=== PATIENT | male | born 1995 | race Caucasian/White ===

== ENCOUNTER 2020-04-15 13:41 | Emergency (ER) | payer OTHER, SELFPAY ==
[2020-04-15 13:53] VITALS: BP 159/92; PULSE 92; RESP 18; O2SAT 100; BMI 28.3
--- NOTE | 2020-04-15 14:17 | CT_ITS ---
WS: [id number] CT ABDOMEN PELVIS TECHNIQUE: Contrast-enhanced CT of the abdomen and pelvis with coronal and sagittal reformatted image s. CLINICAL INFORMATION: abd pain/ umbilical hernia incarcerated COMPARISON: None. DLP: 1063.[address] scans at [facility] use at least one of these dose optimization techniques: automat ed exposure control; mA and/or kV adjustment per patient size (includes targeted exams where dose is matched to clinical indication); or iterative reconstruction. FINDINGS: Normal liver. Normal portal vein and splenic vein. Normal gallbladder. Normal spleen. Lung bases are well aerated. Small esophageal hiatal hernia. Adrenal glands are normal. Normal renal parenchymal enh ancement. No hydronephrosis. Normal caliber abdominal aorta. Sigmoid diverticulosis. No evidence of acute diverticulitis. No evidence of small or large bowel obst ruction. Tiny fat-containing umbilical hernia. No herniated bowel. Small amount of fluid along the um bilical hernia. CT/CT abdomen pelvis w con* [id number] IMPRESSION: 1. No acute abdominal or pelvic findings. 2. Small esophageal hiatal hernia. 3. Normal renal parenchymal enhancement. No hydronephrosis. 4. Normal caliber abdominal aorta. 5. Incidental fat-containing umbilical hernia. Tiny amount of incidental fluid along the umbilical hernia. No herniated bowel. 6. Sigmoid diverticulosis. No evidence of acute diverticulitis. Attempted notification Braxotn Carvajal DO at 04/15/2020 3:49 PM.
--- NOTE | 2020-04-15 14:18 | ED_ITS ---
HPI - Abdominal Pain General: Chief Complaint: Abdominal Pain Stated Complaint: stomach pain/ loo sent for ct Time Seen by Provider: 04/15/20 13:50 History of Present Illness: HPI narrative: 25-year-old male presents emergency room with some abdominal pain. 1 week ago he had a positive nasal swab antibody test. About 5 days prior to that he began to have symptoms he had headaches myalgias little bit of cough that is pretty much all resolved. Today he was seen at a local urgent care clinic and had severe umbilical pain with palpation of the umbilicus or with movement he has localized severe pain he is not noticed any significant bulge in the umbilicus. He is not had any dysuria urgency or frequency denies nausea vomiting or diarrhea has had about 5 stools today but they have all been formed. Denies any dysuria urgency or frequency or heme hem aturia denies any hematic hematochezia or hematemesis. He last ate this morning. MD elicited complaint: abdominal pain Pertinent past history: none Onset (ago): hour(s) Pain Consistency: intermittent Location: Periumbilical Severity: moderate Quality: cramping Radiation: none Migration to: no migration Exacerbating factors: nothing Relieving factors: nothing Associated Symptoms: Reports GI cramping; Denies anorexia, belching, bloating, change in bowel habits, change in stool character, chills, coffee ground emesis, constipation, diarrhea, dyspepsia, dysuria, excessive flatus, fever(s), heartburn, hematochezia, hematuria, hematemesis, fecal incontinence, loose stools, melena, nausea, poor appetite, syncope and vomiting Review of Systems Const: Denies: fever(s) or chills ENMT: Denies: throat pain, ear or mastoid pain, nasal discharge or nasal congestion Card: Denies: syncope Resp: Denies: dyspnea, productive cough or non-productive cough GI: Reports: GI cramping; Denies: nausea, vomiting, hematemesis, coffee ground emesis, heartburn, diarrhea, constipation, bloating, belching, excessive flatus, fecal incontinence, change in bowel habits, change in stool character, hematochezia or melena : Denies: dysuria or hematuria Skin/Breast: Denies: rash or pruritus Physical Exam Const: COMMON NORMALS: no acute distress GENERAL APPEARANCE: cooperative and comfortable ORIENTATION/CONSCIOUSNESS: Yes awake, Yes oriented to person, Yes oriented to place and Yes oriented to time HENMT: COMMON NORMALS: normocephalic, atraumatic and hearing grossly normal bilaterally HEAD & SCALP: normocephalic and atraumatic Eye: COMMON NORMALS: Equal, round and reactive pupils present, EOMs intact bilaterally, conjunctivae normal and no scleral icterus CONJUNCTIVA: Yes conjunctivae normal PUPIL: Yes Equal, round and reactive pupils present Neck/C-Spine: COMMON NORMALS: no JVD Resp: COMMON NORMALS: normal respiratory effort, No retractions, No use of accessory muscles and clear to auscultation bilaterally AUSCULTATION: clear to auscultation bilaterally Cardio: COMMON NORMALS: no JVD, regular rate, regular rhythm and No murmurs present (Cardio) RATE: regular rate RHYTHM: regular rhythm GI: COMMON NORMALS: Soft to palpation and No hepatosplenomegaly present AUSCULTATION: Yes normoactive bowel sounds PALPATION: Yes Soft to palpation, No Tenderness to palpation present (GI), No Guarding due to palpation present (GI) and Yes No hepatosplenomegaly present OTHER: Patient has severe pain but only with palpation directly into the umbilicus. He has a palpable small umbilical hernia with a small amount of what feels like soft tissue entrapped it was nonreducible. See below Extremity: COMMON NORMALS: normal to inspection, capillary refill normal, no clubbing, cyanosis or edema, no calf tenderness and no pedal edema Neuro: SENSORIUM/ORIENTATION: Yes oriented to person, Yes oriented to place and Yes oriented to time Skin: COMMON NORMALS: no rashes or lesions noted GENERAL SKIN EXAM: no rashes or lesions noted Course Vital Signs: Vital signs: Vital Signs Pulse Rate 70 04/15/20 16:35 Respiratory Rate 15 04/15/20 16:35 Blood Pressure 135/70 04/15/20 16:35 Pulse Oximetry 98 04/15/20 16:35 MDM - Abdominal Pain MDM Narrative: Medical decision making narrative: CT shows very small umbilical hernia with fat within the hernia. At this point he is asymptomatic unless is directly palpated. Given his COVID positive status and he could be better to discharge him home limit lifting to no more than [address]. [address] Nichole he agreed will have the patient follow-up in 2 weeks in the COVID is no longer an issue at that point he can look at having the hernia surgically corrected. Lab Data: Labs: Lab Results 04/15/20 04/15/20 04/15/20 Range/Units 14:29 14:29 14:47 WBC 8.4 (4.0-10.0) 10^3/ uL RBC 5.57 H (4.1-5.3) 10^6/u L Hgb 15.9 (11.7-16.6) g/dL Hct 49.1 (42.0-52.0) % MCV 88.2 (80-94) fL MCH 28.5 (28.0-34.0) pg MCHC 32.4 (30.0-36.0) g/dL RDW 12.3 (12.1-15.1) % Plt Count 206 (130-400) 10^3/c mm MPV 11.3 H (7.4-10.4) fL Neut % (Auto) 67.7 % Lymph % (Auto) 26.3 % [place] % (Auto) 5.3 % Eos % (Auto) 0.4 % Baso % (Auto) 0.1 % Neut # (Auto) 5.66 (1.8-7.7) 10^3/u L Lymph # (Auto) 2.2 (0.8-4.8) 10^3/u L [place] # (Auto) 0.4 (0.2-0.9) 10^3/u L Eos # (Auto) 0.0 (0.0-0.8) 10^3/u L Baso # (Auto) 0.0 (0.0-0.1) 10^3/u L Nucleated RBC % (a uto) 0 % Nucleated RBCs # 0.0 /100WBC Sodium 136 (136-145) mmol/L Potassium 4.1 (3.5-5.1) mmol/L Chloride 101 (98-107) mmol/L Carbon Dioxide 24 (22-29) mmol/L Anion Gap 15.1 (5-19) BUN 13 (6-20) mg/dL Creatinine 0.7 (0.7-1.2) mg/dL GFR Calculation 137.4 H (90-130) mL/min Glucose 115 (65-115) mg/dL Calculated Osmolal ity 279 L (285-295) mOsm/k g Calcium 9.2 (8.5-10.5) mg/dL Total Bilirubin 0.7 (0.15-1.2) mg/dL AST 18 (0-40) U/L ALT 37 (0-41) U/L Alkaline Phosphata se 42 (40-130) IU/L Total Protein 7.9 (6.6-8.7) g/dL Albumin 4.7 (3.5-5.2) g/dL Globulin 3.2 (1.3-4.6) g/dL Lipase 22 (13-60) U/L Urine Color Yellow (Yellow) Urine Appearance Clear (CLEAR) Urine pH 5 (5-7) Ur Specific Gravit y 1.020 (1.005-1.030) Urine Protein Neg (Negative) Urine Glucose (UA) Norm (Normal) Urine Ketones Negative (Negative) Urine Blood 2+ H (Negative) Urine Nitrate Negative (Negative) Urine Bilirubin Neg (NEGATIVE) Urine Urobilinogen Neg (Negative) mg/dL Ur Leukocyte Angela ase Negative (Negative) Urine RBC 0-4 H (0-2) /hpf Urine WBC None (0-5) /hpf Ur Squamous Epith Cells Rare (0-5) Amorphous Sediment Not Reportable Urine Bacteria Trace (NONE) Discharge Plan Discharge Patient Disposition: Home Clinical Impression: Hernia, umbilical, COVID-19 virus infection Condition: Stable Prescriptions: No Action Multiple Vitamins Tablet 1 tab PO DAILY RF: 0 Tylenol 325 mg Tablet 650 mg PO PRN RF: 0 Nyquil Liquid See Rx Instructions .ROUTE .COMPLEX RF: 0 Discharge Orders: Discharge Order (Routine); Ordered 04/15/20 Ordered By: Braxton Carvajal Referrals: Jhon Haskins MD [Primary Care Provider] - Discharge Diet: Usual diet Discharge Activity: Limit activity as instructed Activity Restrictions/Additional Instructions: No lifting greater than 20 pounds. Case management will call you and make an arrangement to see general surgery in 2 weeks from the COVID infection is no longer an issue to repair your umbilical hernia Stand Alone Forms: Work/School Release Discharge Date/Time: 04/15/20 16:36 Coding Level of Care Code ED [employer] Consult[employer] for Kendy López
[2020-04-15 14:35] LABS: Basophils % 0.1 %; Eosinophils % 0.4 %; Hematocrit 49.1 % (42.0-52.0); Hemoglobin 15.9 g/dL (11.7-16.6); Lymphocytes # 2.2 10^3/uL (0.8-4.8); Lymphocytes % 26.3 %; Mean Corpuscular HGB Conc 32.4 g/dL (30.0-36.0); Mean Corpuscular Hemoglobin 28.5 pg (28.0-34.0); Mean Corpuscular Volume 88.2 fL (80-94); Mean Platelet Volume 11.3 fL (7.4-10.4); Monocytes # 0.4 10^3/uL (0.2-0.9); Monocytes % 5.3 %; Neutrophils # 5.66 10^3/uL (1.8-7.7); Neutrophils % 67.7 %; Nucleated Red Blood Cells % 0 %; Platelet Count 206 10^3/cmm (130-400); Red Blood Count 5.57 10^6/uL (4.1-5.3); Red Cell Distribution Width 12.3 % (12.1-15.1); White Blood Count 8.4 10^3/uL (4.0-10.0)
[2020-04-15 14:53] LABS: Alanine Aminotransferase 37 U/L (0-41); Albumin Level 4.7 g/dL (3.5-5.2); Alkaline Phosphatase 42 IU/L (40-130); Anion Gap 15.1 (5-19); Aspartate Amino Transferase 18 U/L (0-40); Blood Urea Nitrogen 13 mg/dL (6-20); Calcium 9.2 mg/dL (8.5-10.5); Carbon Dioxide 24 mmol/L (22-29); Chloride 101 mmol/L (98-107); Globulin 3.2 g/dL (1.3-4.6); Glomerular Filtration Rate 137.4 mL/min (90-130); Glucose 115 mg/dL (65-115); Lipase 22 U/L (13-60); Osmolality Calculated 279 mOsm/kg (285-295); Potassium 4.1 mmol/L (3.5-5.1); Sodium 136 mmol/L (136-145); Total Bilirubin 0.7 mg/dL (0.15-1.2); Total Protein 7.9 g/dL (6.6-8.7)
[2020-04-15 15:06] LABS: Add Urine Microscopic? YES; Bilirubin Urine Neg (NEGATIVE); Blood Urine 2+ (Negative); Glucose Urine UA Norm (Normal); Ketones Urine Negative (Negative); Leukocyte Esterase Urine Negative (Negative); Nitrate Urine Negative (Negative); Protein Urine Neg (Negative); Urine Appearance Clear (CLEAR); Urine Color Yellow (Yellow); Urobilinogen Urine Neg (Negative); pH Urine 5 (5-7)
[2020-04-15 15:20] LABS: RBC Urine 0-4 /hpf (0-2); Squamous Epithelial Cell Urine RARE (0-5)
[2020-04-15 15:21] LABS: Add Urine Culture? No; Bacteria Urine TRACE
[2020-04-15] MEDS: iohexol 300 mg/mL 100 mL Btl IV (15:24)
[2020-04-15 16:35] VITALS: BP 135/70; PULSE 70; RESP 15; O2SAT 98
--- NOTE | 2020-04-16 11:59 | DCPLANNER ---
motor hotel manager had message to schedule a follow up appointment for patient with general surgery. motor hotel manager called [facility], spoke with Mana, a follow up appointment was scheduled for , May 01, 2020 at 1:15 with . motor hotel manager called patient and informed patient of the scheduled appointment.
--- NOTE | 2020-05-09 10:54 | DCPLANNER ---
Patient had a follow up appointment scheduled with Business Unit Manager - patient did attend the appointment.
== END 2020-04-15 16:36 | disposition home or self-care (01) ==
PROVIDERS: Emergency Provider Family Medicine; PCP Family Medicine
DX: K42.9 Umbilical hernia without obstruction or gangrene (principal); U07.1 COVID-19
CPT/HCPCS: 12345; 74177; 80053; 81001; 83690; 85025; 99283; Q9967